=== PATIENT | male | born 2000 | race African-American/Black ===

== ENCOUNTER 2019-01-06 17:01 | Outpatient (CLI) | payer OTHER | END 2019-01-06 17:02 | disposition EMS.NT | LOC: EMS 17:01 | PROVIDERS: ATTEND Surgery | DX: S69.91XA Unspecified injury of right wrist, hand and finger(s), initial encounter (principal); S00.81XA Abrasion of other part of head, initial encounter; V18.4XXA Pedal cycle driver injured in noncollision transport accident in traffic accident, initial encounter; Y93.55 Activity, bike riding; Y92.414 Local residential or business street as the place of occurrence of the external cause ==

== ENCOUNTER 2019-01-06 17:49 | Emergency (ER) | payer OTHER ==
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
[2019-01-06] MEDS ORDERED: ACETAMINOPHEN 325 MG TABLET PO STA (22:29)
[2019-01-06] MEDS ORDERED: IBUPROFEN 600 MG TABLET PO STA (22:29)
[2019-01-06] MEDS ORDERED: oxyCODONE 5 MG TABLET PO STA (22:29)
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
[2019-01-07] MEDS ORDERED: oxyCODONE 5 MG TABLET PO STA (01:02)
[2019-01-07 01:15] VITALS: BP 135/79
--- NOTE | 2019-01-10 06:32 | XRAY Report ---
Reason: reduction/splinting Procedure Date: 01/07/2019 Accession Number: [id number] / [id number] Procedure: XR - Hand 2 View RT CPT Code: Final Report FULL RESULT: EXAM: RIGHT HAND RADIOGRAPHY EXAM DATE: 01/07/2019 12:51 AM. CLINICAL HISTORY: Reduction/splinting. COMPARISON: HAND 2 VIEW RT 01/06/2019 11:42 PM. TECHNIQUE: 2 views. FINDINGS: Bones: Minimal residual displacement and angulation of the second and third metacarpal fractures after cast placement. Joints: Normal. No subluxations. Soft Tissues: Soft tissue swelling about the fractures. IMPRESSION: Near anatomic alignment status post reduction and cast placement for the second and third metacarpal fractures. RADIA
== END 2019-01-07 01:20 | disposition home or self-care (01) ==
LOC: ED 17:49
DX: S62.320A Displaced fracture of shaft of second metacarpal bone, right hand, initial encounter for closed fracture (principal); S62.322A Displaced fracture of shaft of third metacarpal bone, right hand, initial encounter for closed fracture; S00.81XA Abrasion of other part of head, initial encounter; V18.0XXA Pedal cycle driver injured in noncollision transport accident in nontraffic accident, initial encounter; Y93.55 Activity, bike riding; Y92.410 Unspecified street and highway as the place of occurrence of the external cause
CPT/HCPCS: 73110; 73120; 99283; A9270

== ENCOUNTER 2019-07-26 14:05 | Emergency (ER) | payer OTHER ==
[2019-07-26 15:22] LABS: BASOPHILS % (AUTO) 1.2 %; EOSINOPHILS # (AUTO) 0.1 10^3/uL (0.0-0.7); HGB - HEMOGLOBIN 15.6 g/dL (14.0-18.0); LYMPHOCYTES # (AUTO) 1.8 10^3/uL (1.5-3.5); LYMPHOCYTES % (AUTO) 52.8 %; MEAN CORPUSCULAR HEMOGLOBIN 28.4 pg (27.0-31.0); MEAN CORPUSCULAR HGB CONC 32.7 g/dL (32.0-36.0); MEAN CORPUSCULAR VOLUME 86.9 fL (80.0-94.0); MEAN PLATELET VOLUME 8.9 fL (7.4-11.4); MONOCYTES # (AUTO) 0.2 10^3/uL (0.0-1.0); MONOCYTES % (AUTO) 4.4 %; NEUTROPHILS # (AUTO) 1.4 10^3/uL (1.5-6.6); NEUTROPHILS % (AUTO) 39.6 %; PLT - PLATELET COUNT 192 10^3/uL (130-450); RED BLOOD COUNT 5.49 10^6/uL (4.70-6.10); WHITE BLOOD COUNT 3.4 x10^3/uL (4.8-10.8)
[2019-07-26 15:38] LABS: ALBUMIN 4.8 g/dL (3.2-5.5); ALBUMIN/GLOBULIN RATIO 1.5 (1.0-2.2); BILIRUBIN,TOTAL 1.6 mg/dL (0.2-1.0); CALCIUM 9.6 mg/dL (8.5-10.3); CREATININE 0.9 mg/dL (0.6-1.2)
[2019-07-26] MEDS ORDERED: MAG HYDROX/AL HYDROX/SIMETH 30 ML UDC PO STA (16:30)
[2019-07-26] MEDS ORDERED: LIDOCAINE VISCOUS 2% 15 ML UDC MM STA (16:30)
--- NOTE | 2019-07-26 16:31 | ED Physician Documentation ---
PD HPI ABD PAIN - Stated complaint Stated Complaint: Indigestion - Chief complaint Chief Complaint: Abd Pain - History obtained from History obtained from: Patient (19-year-old who for the last 5 days has had chest and neck burning, it is worse after eating, about 10 minutes after eating. He has been taking Nexium without relief and also tried some Mylanta without relief. It does not get worse with exertion. He denies shortness of breath or cough.) Review of Systems Constitutional: reports: Reviewed and negative Throat: reports: Reviewed and negative Cardiac: reports: Chest pain / pressure. denies: Palpitations, Pedal edema, Calf pain PD PAST MEDICAL HISTORY - Past Medical History Cardiovascular: None Respiratory: None Neuro: None Endocrine/Autoimmune: None GI: None : None HEENT: None Psych: None Musculoskeletal: Other Derm: None - Past Surgical History Past Surgical History: No General: EGD - Present Medications Home Medications: Ambulatory Orders Medication Instructions Recorded Confirmed Oxycodone HCl/Acetaminophen 1 - 2 each PO Q6H PRN #14 tablet 01/07/19 01/12/19 [Percocet 5-325 mg Tablet] Pantoprazole Sodium [Protonix] 40 mg PO BID #60 tablet. 07/26/19 Sucralfate [Carafate] 1 gm PO ACHS #60 tablet 07/26/19 - Allergies Allergies/Adverse Reactions: Allergies Allergy/AdvReac Type Severity Reaction Status Date / Time No Known Drug Allergies Allergy Verified 07/26/19 14:08 - Social History Does the pt smoke?: No Smoking Status: Never smoker Does the pt drink ETOH?: No Does the pt have substance abuse?: No - Immunizations Immunizations are current?: Yes - POLST Patient has POLST: No PD ED PE NORMAL - Vitals Vital signs reviewed: Yes - General General: Alert and oriented X 3, No acute distress - HEENT HEENT: Pharynx benign - Neck Neck: Supple, no meningeal sign, No bony TTP - Cardiac Cardiac: RRR, No murmur - Respiratory Respiratory: No respiratory distress, Clear bilaterally - Abdomen Abdomen: Non tender Results - Vitals Vitals: Vital Signs - 24 hr 07/26/19 14:08 Temperature 36.7 C Heart Rate 80 Respiratory 15 Rate Blood Pressure 125/77 O2 Saturation 99 Oxygen O2 Source Room air - EKG (time done) 1417 Rate: Rate (enter#) (91) Rhythm: NSR Line [place]: Normal Intervals: Normal [place] QRS: Normal Ischemia: ST elevation c/w repol. No: ST elevation c/w ischemia, ST depression - Labs Labs: Laboratory Tests 07/26/19 07/26/19 15:12 15:12 WBC 3.4 L RBC 5.49 Hgb 15.6 Hct 47.7 MCV 86.9 MCH 28.4 MCHC 32.7 RDW 12.0 Plt Count 192 MPV 8.9 Neut # (Auto) 1.4 L Lymph # (Auto) 1.8 [place] # (Auto) 0.2 Eos # (Auto) 0.1 Baso # (Auto) 0.0 Absolute Nucleated RBC 0.00 Nucleated RBC % 0.0 Sodium 138 Potassium 3.9 Chloride 102 Carbon Dioxide 29 Anion Gap 7.0 BUN 8 Creatinine 0.9 Estimated GFR (MDRD) 130 Glucose 83 Calcium 9.6 Total Bilirubin 1.6 H AST 18 ALT 12 Alkaline Phosphatase 53 Total Protein 8.0 Albumin 4.8 Globulin 3.2 Albumin/Globulin Ratio 1.5 Lipase 32 PD MEDICAL DECISION MAKING - ED course ED course: 19-year-old gentleman with history of what sounds like reflux, no evidence of heart disease. Heart score 0. Feeling much better after a GI cocktail. Departure - Departure Disposition: 01 Home, Self Care Clinical Impression: GERD (gastroesophageal reflux disease) Qualifiers: Esophagitis presence: with esophagitis Qualified Code(s): K21.0 - Gastro- esophageal reflux disease with esophagitis Condition: Good Record reviewed to determine appropriate education?: Yes Instructions: ED GERD Prescriptions: Pantoprazole Sodium [Protonix] 40 mg PO BID #60 tablet. Sucralfate [Carafate] 1 gm PO ACHS #60 tablet Comments: Call your doctor to arrange a follow-up appointment, make the next available appointment. In the interim, return anytime if worse or if new symptoms develop.
[2019-07-26 17:03] VITALS: BP 119/90
== END 2019-07-26 17:04 | disposition home or self-care (01) ==
LOC: ED 14:05
DX: K21.0 Gastro-esophageal reflux disease with esophagitis (principal)
CPT/HCPCS: 36415; 80053; 83690; 85025; 93005; 99283; 99284; A9270

== ENCOUNTER 2020-02-12 05:34 | Emergency (ER) | payer OTHER ==
--- NOTE | 2020-02-12 05:56 | ED Physician Documentation ---
PD HPI CHEST PAIN - Stated complaint Stated Complaint: CHEST PX, [place] - Chief complaint Chief Complaint: Cardiac - History obtained from History obtained from: Patient - History of Present Illness Timing - onset: How many hours ago (1) Timing - onset during: Sleep Timing - details: Abrupt onset Pain level max: 9 Pain level now: 7 Quality: Pain Location: Left chest Radiation: Other (no radiation) Associated symptoms: Nausea, Other (numbness "my whole body") Similar symptoms before: Has not had sx before Recently seen: Not recently seen - Additional information Additional information: awoken from sleep with left-sided chest pain and "whole body" (per patient) numbness. prior to this evaluation, numbness resolved and chest pain has singificantly improved Review of Systems Constitutional: denies: Fever Cardiac: reports: Chest pain / pressure. denies: Palpitations, Pedal edema, Calf pain Respiratory: reports: Reviewed and negative GI: reports: Reviewed and negative Musculoskeletal: denies: Extremity swelling PD PAST MEDICAL HISTORY - Past Medical History Cardiovascular: None Respiratory: None Neuro: None Endocrine/Autoimmune: None GI: GERD : None HEENT: None Psych: None Musculoskeletal: Other Derm: None - Past Surgical History Past Surgical History: No General: EGD - Present Medications Home Medications: Ambulatory Orders Medication Instructions Recorded Confirmed No Known Home Medications 02/12/20 02/12/20 - Allergies Allergies/Adverse Reactions: Allergies Allergy/AdvReac Type Severity Reaction Status Date / Time No Known Drug Allergies Allergy Verified 02/12/20 05:45 - Social History Does the pt smoke?: No Smoking Status: Never smoker Does the pt drink ETOH?: No Does the pt have substance abuse?: No - Immunizations Immunizations are current?: Yes - POLST Patient has POLST: No PD ED PE NORMAL - Vitals Vital signs reviewed: Yes - General General: Alert and oriented X 3, No acute distress, Well developed/nourished - Cardiac Cardiac: RRR, No murmur, No gallop, No rub - Respiratory Respiratory: No respiratory distress, Clear bilaterally - Abdomen Abdomen: Soft, Non tender - Extremities Extremities: No edema Results - Vitals Vitals: Oxygen O2 Source Room air - EKG (time done) No standard instances Rate: Rate (enter#) (76) Rhythm: NSR [place]: Normal Intervals: Normal [place] QRS: Normal Ischemia: ST elevation c/w repol Compare to prior EKG: Unchanged from prior EKG (07/26/[address] elevation/early repol pattern) - Labs Labs: Laboratory Tests 02/12/20 02/12/20 02/12/20 05:59 05:59 05:59 WBC 5.1 RBC 5.09 Hgb 15.1 Hct 44.6 MCV 87.6 MCH 29.7 MCHC 33.9 RDW 11.8 L Plt Count 193 MPV 9.3 Neut # (Auto) 1.7 Lymph # (Auto) 3.0 [place] # (Auto) 0.2 Eos # (Auto) 0.2 Baso # (Auto) 0.1 Absolute Nucleated RBC 0.00 Nucleated RBC % 0.0 Sodium 140 Potassium 3.8 Chloride 103 Carbon Dioxide 28 Anion Gap 9.0 BUN 12 Creatinine 0.9 Estimated GFR (MDRD) 130 Glucose 118 H Calcium 9.6 Troponin I High Sens 3.6 - Rads (name of study) chest xray Radiology: Prelim report reviewed, See rad report PD MEDICAL DECISION MAKING - ED course Complexity details: reviewed results, re-evaluated patient, considered differential, d/w patient Departure - Departure Disposition: Home, Self Care Clinical Impression: Chest pain, Bronchiolitis Condition: Good Instructions: ED Upper Resp Infec No Abx Tx, ED Chest Pain Atypical Unkn Cause Comments: I have low suspicion that the COVID test will be positive, as your symptoms are limited to chest pain (no fever, cough, shortness of breath, headache). Because the chest xray is consistent with a viral upper respiratory infection, it is best to perform the COVID test despite lack of these other symptoms. I advise that you stay home until the test result returns negative AND your symptoms have completely resolved. If your test returns positive, you will need to isolate in quarantine at home and follow the [facility] guidelines for a positive COVID test. Forms: Activity restrictions Discharge Date/Time: 02/12/20 08:48
[2020-02-12 06:24] LABS: BASOPHILS # (AUTO) 0.1 10^3/uL (0.0-0.1); EOSINOPHILS # (AUTO) 0.2 10^3/uL (0.0-0.7); EOSINOPHILS % (AUTO) 3.3 %; HGB - HEMOGLOBIN 15.1 g/dL (14.0-18.0); LYMPHOCYTES % (AUTO) 57.6 %; MEAN CORPUSCULAR HEMOGLOBIN 29.7 pg (27.0-31.0); MEAN CORPUSCULAR HGB CONC 33.9 g/dL (32.0-36.0); MEAN CORPUSCULAR VOLUME 87.6 fL (80.0-94.0); MEAN PLATELET VOLUME 9.3 fL (7.4-11.4); MONOCYTES # (AUTO) 0.2 10^3/uL (0.0-1.0); MONOCYTES % (AUTO) 4.3 %; NEUTROPHILS # (AUTO) 1.7 10^3/uL (1.5-6.6); NEUTROPHILS % (AUTO) 33.4 %; PLT - PLATELET COUNT 193 10^3/uL (130-450); RED BLOOD COUNT 5.09 10^6/uL (4.70-6.10); RED CELL DISTRIBUTION WIDTH 11.8 % (12.0-15.0); WHITE BLOOD COUNT 5.1 x10^3/uL (4.8-10.8)
[2020-02-12 06:36] LABS: CALCIUM 9.6 mg/dL (8.5-10.3); CREATININE 0.9 mg/dL (0.6-1.2)
[2020-02-12 08:21] VITALS: BP 138/90
--- NOTE | 2020-02-12 08:32 | XRAY Report ---
PROCEDURE: Chest 2 View X-Ray INDICATIONS: chest pain TECHNIQUE: 2 view(s) of the chest. COMPARISON: None. FINDINGS: Surgical changes and devices: None. Lungs and pleura: No pleural effusions or pneumothorax. Mildly increased from the vascular markings in bilateral hilar region are seen with bronchial wall thickening. No focal infiltrate. Mediastinum: Mediastinal contours are normal. Heart size is normal. Bones and chest wall: No suspicious bony abnormalities. Soft tissues appear unremarkable. IMPRESSION: Finding is concerning for reactive airway disease such as bronchiolitis or asthma. No fo nevin infiltrate. No significant discrepancies from preliminary reading. Reviewed by: Daljit Alexander MD on 02/12/2020 8:30 AM PST Approved by: Daljit Alexander MD on 02/12/2020 8:30 AM PST Station ID: [id number]
== END 2020-02-12 08:48 | disposition home or self-care (01) ==
LOC: ED 05:34
DX: R07.9 Chest pain, unspecified (principal); J21.9 Acute bronchiolitis, unspecified; Z20.828 Contact with and (suspected) exposure to other viral communicable diseases
CPT/HCPCS: 36415; 80048; 84484; 85025; 93005; 99284

== ENCOUNTER 2020-04-19 00:25 | Emergency (ER) | payer OTHER ==
--- NOTE | 2020-04-19 00:33 | ED Physician Documentation ---
PD HPI URI - Stated complaint Stated Complaint: FEVER,THROAT PX,BODY ACHES - History obtained from History obtained from: Patient - History of Present Illness Timing - onset: Today (onset this morning of aching, chills, sore throat that has persisted through the day and worsening this evening. Having some intermittent mid to lower abd cramping pains at times as well. An episode of diarrhea. Nausea without vomiting.) Timing duration: Days (1) Timing details: Gradual onset, Still present Associated symptoms: Fever, Chills, Sore throat, NVD. No: Nasal congestion, Dry cough, Dyspnea Contributing factors: No: Sick contact, Immunocompromised, COPD / asthma Improves by: Medication (Ibuprofen) Similar symptoms before: Has not had sx before Review of Systems Constitutional: reports: Fever, Chills Nose: denies: Rhinorrhea / runny nose, Congestion Throat: reports: Sore throat Respiratory: denies: Cough GI: reports: Abdominal Pain (mid to lower abd intermittently today), Nausea. denies: Vomiting, Constipation, Diarrhea (but did have one loose stool.) : denies: Dysuria, Discharge Skin: denies: Rash, Lesions Neurologic: denies: Near syncope, Altered mental status, Headache PD PAST MEDICAL HISTORY - Past Medical History Cardiovascular: None Respiratory: None Neuro: None Endocrine/Autoimmune: None GI: GERD : None HEENT: None Psych: None Musculoskeletal: Other Derm: None - Past Surgical History Past Surgical History: No General: EGD - Present Medications Home Medications: Ambulatory Orders Medication Instructions Recorded Confirmed Amoxicillin 500 mg PO TID #21 cap 04/19/20 Ondansetron Odt [Zofran] 4 mg TL Q6H PRN #10 tab 04/19/20 dexAMETHasone [Decadron] 4 mg PO DAILY #5 tab 04/19/20 - Allergies Allergies/Adverse Reactions: Allergies Allergy/AdvReac Type Severity Reaction Status Date / Time No Known Drug Allergies Allergy Verified 04/19/20 00:38 - Social History Does the pt smoke?: No Smoking Status: Never smoker Does the pt drink ETOH?: No Does the pt have substance abuse?: No - Immunizations Immunizations are current?: Yes - POLST Patient has POLST: No PD ED PE NORMAL - Vitals Vital signs reviewed: Yes - General General: Alert and oriented X 3, Well developed/nourished - HEENT HEENT: Ears normal, Moist mucous membranes. No: Pharynx benign (some redness in tonsillar area with small tonsils. No focal peritonsillar swelling seen. He does have minimal garbling of voice sounds though. ) - Neck Neck: Supple, no meningeal sign, Other (mild anterior adenopathy. No posterior nodes. ) - Cardiac Cardiac: RRR, No murmur - Respiratory Respiratory: Clear bilaterally - Abdomen Abdomen: Normal bowel sounds, Soft, Non distended, No organomegaly, Other (minimally tender without guarding mid abdomen. Not tender McBurneys point. Mild tender right inguinal without mass/hernia. ) - Male Male : Deferred - Derm Derm: Normal color, Warm and dry, No rash Results - Vitals Vitals: Vital Signs - 24 hr 04/19/20 04/19/20 04/19/20 00:34 00:51 01:07 Temperature 36.9 C Heart Rate 96 87 Respiratory 16 16 16 Rate Blood Pressure 122/76 124/78 O2 Saturation 99 98 04/19/20 04/19/20 01:16 01:19 Temperature Heart Rate Respiratory 15 15 Rate Blood Pressure O2 Saturation Oxygen O2 Source Room air - Labs Labs: Laboratory Tests 04/19/20 00:35 Group A Strep Rapid POSITIVE H PD MEDICAL DECISION MAKING - ED course Complexity details: reviewed results (rapid strep test positive. COVID pending. ), considered differential (no peritonsillar swelling. Normal speaking and respirations. ), d/w patient Departure - Departure Disposition: 01 Home, Self Care Clinical Impression: Acute streptococcal pharyngitis Condition: Stable Record reviewed to determine appropriate education?: Yes Instructions: ED Strep Pharyngitis Conf Prescriptions: Amoxicillin 500 mg PO TID #21 cap dexAMETHasone [Decadron] 4 mg PO DAILY #5 tab Ondansetron Odt [Zofran] 4 mg TL Q6H PRN #10 tab PRN Reason: Nausea / Vomiting Comments: Your strep test is positive for group A strep. This is a bacteria and we will treated with antibiotics. We did do a Covid test as well as it can be dual i nfections. This will result likely tomorrow or so. We will call you if it is positive. Meanwhile take amoxicillin 3 times a day for a week for the strep throat. Decadron steroid for inflammation will help as well. The abdominal pain she been having are likely related to some lymph nodes in the intestine associated with strep throat commonly. This should resolve over the next couple of days a long with the throat. Stay well-hydrated. Tylenol or ibuprofen as needed for pains or both. Ondansetron if needed for nausea. I would anticipate improvement over the next 2 to 3 days. Return if worsening rather than better. Recheck if not improved over the next 3 to 5 days. Forms: Activity restrictions Discharge Date/Time: 04/19/20 01:29
[2020-04-19 00:45] LABS: RAPID STREP SCREEN POSITIVE (Negative)
[2020-04-19] MEDS ORDERED: DEXAMETHASONE 10 MG/ML VIAL PO STA (00:50)
[2020-04-19] MEDS ORDERED: AMOXICILLIN 250 MG CAPSULE PO STA (00:50)
[2020-04-19] MEDS ORDERED: ONDANSETRON ODT 4 MG TABLET TL STA (00:50)
[2020-04-19] MEDS ORDERED: diphenhydrAMINE ELIXIR 25 MG/10 ML UDC PO STA (00:51)
[2020-04-19] MEDS ORDERED: ACETAMINOPHEN 325 MG TABLET PO STA (00:51)
[2020-04-19] MEDS ORDERED: CHERRY SYRUP 10 ML UDC PO ONE (01:07)
[2020-04-19 01:08] VITALS: BP 124/78
== END 2020-04-19 01:29 | disposition home or self-care (01) ==
LOC: ED 00:25
DX: J02.0 Streptococcal pharyngitis (principal); Z20.822 Contact with and (suspected) exposure to COVID-19
CPT/HCPCS: 87430; 87635; 99283; 99284; A9270; Q0162

== ENCOUNTER 2020-05-03 18:06 | Emergency (ER) | payer OTHER ==
[2020-05-03 18:12] VITALS: BP 123/73
[2020-05-03 18:40] LABS: RAPID STREP SCREEN Negative (Negative)
[2020-05-03] MEDS ORDERED: predniSONE 20 MG TABLET PO STA (18:56)
--- NOTE | 2020-05-03 18:57 | ED Physician Documentation ---
PD HPI HEENT - Stated complaint Stated Complaint: THROAT PX - Chief complaint Chief Complaint: Heent - History obtained from History obtained from: Patient (He was diagnosed with strep throat a couple weeks ago and completed antibiotics. He did get better. After the cessation of antibiotics he has a sore throat again. No fevers, runny nose, or cough.) Review of Systems Ten Systems: 10 systems reviewed and negative Constitutional: denies: Fever, Chills Ears: reports: Reviewed and negative Nose: reports: Reviewed and negative PD PAST MEDICAL HISTORY - Past Medical History Cardiovascular: None Respiratory: None Neuro: None Endocrine/Autoimmune: None GI: GERD : None HEENT: None Psych: None Musculoskeletal: Other Derm: None Other Past Medical History: Right hand fracture - Past Surgical History Past Surgical History: No General: EGD - Present Medications Home Medications: Ambulatory Orders Medication Instructions Recorded Confirmed Omeprazole 40 mg PO 05/03/20 predniSONE [Deltasone] 60 mg PO DAILY 5 Days #15 tablet 05/03/20 - Allergies Allergies/Adverse Reactions: Allergies Allergy/AdvReac Type Severity Reaction Status Date / Time No Known Drug Allergies Allergy Verified 05/03/20 18:20 - Social History Does the pt smoke?: No Smoking Status: Never smoker Does the pt drink ETOH?: No Does the pt have substance abuse?: No - Immunizations Immunizations are current?: Yes - POLST Patient has POLST: No PD ED PE NORMAL - Vitals Vital signs reviewed: Yes - General General: Alert and oriented X 3, No acute distress - HEENT HEENT: Other (Red tonsillar pillars without exudates or swelling, no cervical adenopathy. Supple neck.) - Neuro Neuro: Alert and oriented X 3, Normal speech Results - Vitals Vitals: Vital Signs - 24 hr 05/03/20 18:08 Temperature 36.8 C Heart Rate 93 Respiratory 16 Rate Blood Pressure 123/73 O2 Saturation 100 Oxygen O2 Source Room air - Labs Labs: Laboratory Tests 05/03/20 18:27 Group A Strep Rapid Negative Departure - Departure Disposition: 01 Home, Self Care Clinical Impression: Acute viral pharyngitis Condition: Good Record reviewed to determine appropriate education?: Yes Instructions: ED Pharyngitis Viral Report Pending Prescriptions: predniSONE [Deltasone] 60 mg PO DAILY 5 Days #15 tablet Comments: Your strep test is negative, we are performing a throat culture and will call you in a couple of days if it is positive otherwise the prednisone should help with the inflammation. Return if worsening.
== END 2020-05-03 19:04 | disposition home or self-care (01) ==
LOC: ED 18:06
DX: J02.8 Acute pharyngitis due to other specified organisms (principal)
CPT/HCPCS: 87070; 87430; 99283; J7512